=== PATIENT | male | born 1985 | race African-American/Black ===

== ENCOUNTER → 2022-06-02 12:09 | Outpatient (CLI) | payer SELFPAY ==
--- NOTE | ~2022-06-02 | XR_ITS ---
EXAMINATION: XR chest 1V Exam Date/Time: 06/02/2022 12:25 CDT HISTORY: Abnormal IGRA test Comparison: None available. RESULT: Lines, tubes, and devices: None. Lungs and pleura: Clear. Cardiomediastinal silhouette: Normal. Other: No acute osseous or upper abdominal finding. IMPRESSION: No acute cardiopulmonary process. Reviewed, dictated and finalized at location K.
== END ==
DX: R76.12 Nonspecific reaction to cell mediated immunity measurement of gamma interferon antigen response without active tuberculosis (principal)
CPT/HCPCS: 71045